=== PATIENT | female | born 1980 | race Caucasian/White ===

== ENCOUNTER → 2017-01-25 | Outpatient (CLI) | payer BC ==
[~2017-01-25] MED LIST: CPR500 PO
== END | disposition home or self-care (01) ==
LOC: C.LAB1850 07:10
PROVIDERS: ATTEND Nutritionist
DX: R53.83 Other fatigue (principal)

== ENCOUNTER 2017-07-16 15:26 | Emergency (ER) | payer BC ==
[~2017-07-16] VITALS: Ht 170.2 cm; Wt 55.9 kg
[2017-07-16 15:30] VITALS: TEMP 36.7; Ht 170.2 cm; Wt 55.9 kg
[2017-07-16] MEDS: MECLIZINE HCL 25 MG TAB PO STA ×2 (15:43→17:43)
[2017-07-16] MEDS ORDERED: SODIUM CHLORIDE 0.9% 1000ML 1,000 ML IV STA (15:43)
[2017-07-16 16:05] LABS: BASO % 0.6 %; BASO ABS # 0.07 K/uL (0-0.2); HEMATOCRIT 40.8 % (37-47); HEMOGLOBIN 14.3 g/dL (12.0-16.0); IG# 0.02 K/uL (0.00-0.02); LYMPH % 12.4 %; LYMPH ABS # 1.38 K/uL (1.2-3.4); MEAN CELL VOLUME 85.4 fL (80-100); MEAN CORPUSCULAR HEMOGLOBIN 29.9 pg (25-34); MEAN PLATELET VOLUME 9.9 fL (7.4-10.4); MONO % 7.8 %; MONO ABS # 0.87 K/uL (0.11-0.59); NEUT ABS # 7.82 K/uL (1.4-6.5); PLATELET COUNT 273 K/uL (130-400); RED CELL DISTRIBUTION WIDTH CV 12.6 % (11.5-14.5); RED CELL DISTRIBUTION WIDTH SD 39.7 fL (36.4-46.3); WHITE BLOOD COUNT 11.16 K/uL (4.8-10.8)
[2017-07-16 16:24] LABS: ALBUMIN 4.1 gm/dl (3.4-5.0); CALCIUM 9.2 mg/dl (8.5-10.1); CREATININE 0.7 mg/dl (0.60-1.20); POTASSIUM 3.5 mmol/L (3.5-5.1)
[2017-07-16 16:27] LABS: TOTAL PROTEIN 8.3 gm/dl (6.4-8.2)
--- NOTE | 2017-07-16 16:33 | DIAGNOSTIC IMAGING REPORT ---
HEAD CT NONCONTRAST CT DOSE: 614.27 mGy.cm HISTORY: dizzy TECHNIQUE: Multiaxial CT images of the head were performed without the use of intravenous contrast. Automated exposure control was utilized for this study. A dose lowering technique was utilized adhering to the principles of ALARA. Comparison: Brain MRI 08/22/2012. Findings: The paranasal sinuses and mastoid air cells are clear. The calvarium and skull base are intact. The ventricles and sulci are within normal limits. There is no mass, hematoma, midline shift, or acute infarct. Impression: No acute intracranial abnormality. Electronically signed by: Franki Banda M.D. 07/16/2017 4:31 PM Dictated Date/Time: 07/16/2017 4:28 PM
[2017-07-16] MEDS ORDERED: MECL1TAB42 PO (18:03)
[2017-07-16 18:15] VITALS: BP 118/68; PULSE 98; O2SAT 100
[2017-07-16] MEDS ORDERED: MECLIZINE HCL 25MG HOME PACK PO ONE (18:30)
--- NOTE | 2017-07-16 21:22 | EMERGENCY ROOM VISIT NOTE ---
History Report prepared by [place]ibr[place]ana: Margo Edwards Under the Supervision of: Dr. Charlie Stanley D.O. First contact with patient: 15:33 Chief Complaint: DIZZY Stated Complaint: EAR, VISION, OFF BALANCE, HEADACHES History of Present Illness The patient is a 36 year old female who presents to the Emergency Room with complaints of worsening dizziness for the past 1 month. She states she experiences a feeling of "fullness" in her left ear and constant "noise" in the ear, which causes her to feel "dizzy and off balance". She denies the room feeling like it's moving, but states things she looks at are "in motion". She has also experienced blurry vision. About 1 hour [employer], the patient developed a migraine headache, rating her pain as an 8/10 in severity. No exacerbating or remitting factors. She did have this in December for over a month as well. She has not followed up with neurology or anyone else for this. Pt denies fevers, chest pain, shortness of breath, nausea, vomiting, diarrhea, pain with urination, and melena. The patient admits to a history of intermittent tinnitus for the past several years. No weakness or numbness in arms or legs. Source of History: patient Onset: 1 month [employer] Position: head Symptom Intensity: 8/10 Timing: worsening Associated Symptoms: + headache, No fevers, No chest pain, No SOB, No nausea , No vomiting, No melena, No diarrhea, No urinary symptoms Review of Systems See HPI for pertinent positives & negatives. A total of 10 systems reviewed and were otherwise negative. Past Medical & Surgical Medical Problems: (1) Tinnitus Social History Smoking Status: Never Smoker Alcohol Use: occasionally Drug Use: none Marital Status: Housing Status: lives with family Occupation Status: employed Current/Historical Medications Scheduled Meclizine Hcl (Meclizine Hcl), 1 TAB PO TID Allergies Coded Allergies: No Known Allergies (Verified Allergy, Unknown, 12/29/04) Physical Exam Vital Signs Date Time Temp Pulse Resp B/P (MAP) Pulse Ox O2 Delivery O2 Flow Rate FiO2 07/16/17 18:15 98 16 118/68 100 Room Air 07/16/17 17:28 103 16 122/71 100 Room Air 07/16/17 15:30 36.7 110 17 122/83 100 Room Air Physical Exam GENERAL: Sitting up in bed, alert, well appearing, well nourished, no distress, non-toxic EYE EXAM: normal conjunctiva. PERRL and EOM's intact. OROPHARYNX: no exudate, no erythema, lips, buccal mucosa, and tongue normal and mucous membranes are moist EARS: TM's clear bilaterally. NECK: supple, no nuchal rigidity, no adenopathy, non-tender LUNGS: Clear to auscultation. Normal chest wall mechanics HEART: no murmurs, S1 normal and S2 normal ABDOMEN: abdomen soft, non-tender, normo-active bowel sounds, no masses, no rebound or guarding. BACK: Back is symmetrical on inspection and there is no deformity, no midline tenderness, no CVA tenderness. SKIN: no rashes and no bruising UPPER EXTREMITIES: upper extremities are grossly normal. LOWER EXTREMITIES: No pitting edema. NEURO EXAM: Normal sensorium, cranial nerves II-XII intact, normal speech, no weakness of arms, no weakness of legs. No drift. Finger to nose intact. Patient ambulates without difficulty. Medical Decision & Procedures ER Provider Diagnostic Interpretation: Radiology results as stated below per my review and the radiologist's interpretation: HEAD CT NONCONTRAST CT DOSE: 614.27 mGy.cm HISTORY: dizzy TECHNIQUE: Multiaxial CT images of the head were performed without the use of intravenous contrast. Automated exposure control was utilized for this study. A dose lowering technique was utilized adhering to the principles of ALARA. Comparison: Brain MRI 08/22/2012. Findings: The paranasal sinuses and mastoid air cells are clear. The calvarium and skull base are intact. The ventricles and sulci are within normal limits. There is no mass, hematoma, midline shift, or acute infarct. Impression: No acute intracranial abnormality. Electronically signed by: Franki Banda M.D. 07/16/2017 4:31 PM Laboratory Results 07/16/17 15:55 Red Blood Count 4.78, Mean Corpuscular Volume 85.4, Mean Corpuscular Hemoglobin 29.9, Mean Corpuscular Hemoglobin Concent 35.0, Mean Platelet Volume 9.9, Neutrophils (%) (Auto) 70.0, Lymphocytes (%) (Auto) 12.4, Monocytes (%) (Auto) 7.8, Eosinophils (%) (Auto) 9.0, Basophils (%) (Auto) 0.6, Neutrophils # (Auto) 7.82, Lymphocytes # (Auto) 1.38, Monocytes # (Auto) 0.87, Eosinophils # (Auto) 1.00, Basophils # (Auto) 0.07 07/16/17 15:55 Test 07/16/17 15:50 07/16/17 15:55 Urine Color YELLOW Urine Appearance TURBID (CLEAR) Urine pH 8.0 (4.5-7.5) Urine Specific Porter 1.013 (1.000-1.030) Urine Protein NEG (NEG) Urine Glucose (UA) NEG (NEG) Urine Ketones NEG (NEG) Urine Occult Blood NEG (NEG) Urine Nitrite NEG (NEG) Urine Bilirubin NEG (NEG) Urine Urobilinogen NEG (NEG) Urine Leukocyte Esterase NEG (NEG) Urine WBC (Auto) 1-5 /hpf (0-5) Urine RBC (Auto) 5-10 /hpf (0-4) Urine Hyaline Casts (Auto) 1-5 /lpf (0-5) Urine Epithelial Cells (Auto) >30 /lpf (0-5) Urine Bacteria (Auto) NEG (NEG) Urine Test NEG (NEG) White Blood Count 11.16 K/uL (4.8-10.8) Red Blood Count 4.78 M/uL (4.2-5.4) Hemoglobin 14.3 g/dL (12.0-16.0) Hematocrit 40.8 % (37-47) Mean Corpuscular Volume 85.4 fL (80-100) Mean Corpuscular Hemoglobin 29.9 pg (25-34) Mean Corpuscular Hemoglobin Concent 35.0 g/dl (32-36) Platelet Count 273 K/uL (130-400) Mean Platelet Volume 9.9 fL (7.4-10.4) Neutrophils (%) (Auto) 70.0 % Lymphocytes (%) (Auto) 12.4 % Monocytes (%) (Auto) 7.8 % Eosinophils (%) (Auto) 9.0 % Basophils (%) (Auto) 0.6 % Neutrophils # (Auto) 7.82 K/uL (1.4-6.5) Lymphocytes # (Auto) 1.38 K/uL (1.2-3.4) Monocytes # (Auto) 0.87 K/uL (0.11-0.59) Eosinophils # (Auto) 1.00 K/uL (0-0.5) Basophils # (Auto) 0.07 K/uL (0-0.2) RDW Standard Deviation 39.7 fL (36.4-46.3) RDW Coefficient of Variation 12.6 % (11.5-14.5) Immature Granulocyte % (Auto) 0.2 % Immature Granulocyte # (Auto) 0.02 K/uL (0.00-0.02) Anion Gap 3.0 mmol/L (3-11) Est Creatinine Clear Calc Drug Dose 98.0 ml/min Estimated GFR () 129.2 Estimated GFR (Non- 111.5 BUN/Creatinine Ratio 18.5 (10-20) Calcium Level 9.2 mg/dl (8.5-10.1) Total Bilirubin 0.6 mg/dl (0.2-1) Direct Bilirubin 0.2 mg/dl (0-0.2) Aspartate Amino Transf (AST/SGOT) 15 U/L (15-37) Alanine Aminotransferase (ALT/SGPT) 19 U/L (12-78) Alkaline Phosphatase 77 U/L (45-117) Total Protein 8.3 gm/dl (6.4-8.2) Albumin 4.1 gm/dl (3.4-5.0) Lipase 110 U/L (73-393) Laboratory results per my review. Medications Administered Medications (Trade) Dose Ordered Sig/Lalita Route Start Time Stop Time Status Last Admin Dose Admin Sodium Chloride 1,000 ml @ 999 mls/hr Q1H1M STAT IV 07/16/17 15:43 07/16/17 16:43 DC 07/16/17 15:57 999 MLS/HR Meclizine HCl (Antivert Tab) 25 mg NOW STAT PO 07/16/17 15:43 07/16/17 15:45 DC 07/16/17 17:43 25 MG Meclizine HCl (Antivert 25MG Home Pack) 1 homepack UD ONCE PO 07/16/17 18:30 07/16/17 18:31 DC 07/16/17 18:27 1 HOMEPACK ECG Per My Interpretation Indication: weakness Rate (beats per minute): 99 Rhythm: sinus rhythm Findings: Q waves (Septal), other (normal axis, late R-wave progression) ED Course ED COURSE: Vital signs were reviewed and showed normal vital signs. The patients medical record was reviewed The above diagnostic studies were performed and reviewed. ED treatments and interventions as stated above. 1535: The patient was evaluated in room B11. A complete history and physical examination was performed. 1543: NSS 1000 ml @ 999 mls/hr IV. 1545: Nursing informed me the patient declined the Antivert. 1800: Upon reevaluation, the patient is feeling well and is ready to go home. I discussed my findings with the patient and she understands and agrees with the treatment plan. Based on the patients age, coexisting illnesses, exam and lab findings the decision to treat as an outpatient was made. The patient remained stable while under my care. The patient appeared well at the time of discharge. Medical Decision Differential diagnosis includes etiologies such as benign positional vertigo, dehydration, hypovolemia, anemia, tumor, infection, hypoglycemia, electrolyte abnormalities, cardiac sources, intracerebral event, toxicologic, neurologic, as well as others were entertained. Patient is a 36-year-old female who presents the ER for ringing in her ears associated with dizziness. Ringing present in bilateral ears. This is been intermittent for the past 6 months. Normally last for close to a month at a time. It does come and go intermittently though. No exacerbating or remitting factors. She notes that when the ringing gets worse or dizziness does changes well. IV was established and CBC along with BMP, LFTs, bilirubin UA was negative. was negative. Patient was given fluids but she declined any other medications. Just prior to discharge she was agreeable to trying Antivert. CT head was negative. She was updated at bedside. Did recommend following up with neurology and ENT. Patient was agreeable with this. With her neuro exam intact she was discharged follow-up with them as an outpatient. Discussed with Pt concerning signs and symptoms to watch out for. Pt was instructed to follow up with their PCP and discussed with the patient their option to return to the ED at anytime for persistent or worsening symptoms. The appropriate anticipatory guidance and out-patient management, including indications for return to the emergency department, were explained at length to the patient and understood. Medication Reconcilliation Current Medication List: was personally reviewed by me Blood Pressure Screening Patient's blood pressure: Normal blood pressure Blood pressure disposition: Did not require urgent referral Impression Primary Impression: Tinnitus Additional Impression: Dizziness Scribe Attestation The scribe's documentation has been prepared under my direction and personally reviewed by me in its entirety. I confirm that the note above accurately reflects all work, treatment, procedures, and medical decision making performed by me. Departure Information Dispostion Home / Self-Care Prescriptions Meclizine Hcl (MECLIZINE HCL) 25 Mg Tab 1 TAB PO TID for 30 Days, #90 TAB Prov: Charlie Stanley, DO 07/16/17 Referrals No Doctor, Assigned (PCP) Patient Instructions ED Dizziness [facility], My [facility] Additional Instructions Please follow up with your primary care doctor with in the next 24 hours. Any worsening of your symptoms, please return to the ED immediately. This includes any fevers greater than 100.4, worsening pain, chest pain, shortness breath, persistent nausea, vomiting, unable to eat or drink, or any other concerning signs or symptoms from your standpoint. Please take Antivert as prescribed. Problem Qualifiers Primary Impression: Tinnitus Laterality: unspecified laterality Qualified Codes: H93.19 - Tinnitus, unspecified ear
== END 2017-07-16 18:15 | disposition home or self-care (01) ==
LOC: C.EDB 15:26
DX: H93.13 Tinnitus, bilateral (principal); R42 Dizziness and giddiness

== ENCOUNTER → 2017-08-18 | Outpatient (CLI) | payer BC ==
--- NOTE | 2017-08-18 17:42 | EEG Procedure Note ---
EEG Procedure Note Date of Service August 18, 2017. Start / End Times Start Time: 1:36 PM End Time: 1:58 PM Referring Physician ELVA Valdivia History This is a 37-year-old female with spells is vertigo and presyncope. EEG for further evaluation of possible seizure etiology. Description This is a 21 electrode EEG with a single channel dedicated to limited EKG. The electrodes were placed in accordance with the International 10-20 system. At the start of the recording the patient was in an awake state. Background was well organized and composed of symmetric mixed alpha and beta frequencies. There was a symmetric well-formed moderate amplitude 9-10 Hz posterior dominant rhythm that was reactive to eye opening and closure. Hyperventilation was not done. Intermittent photic stimulation at various frequencies produced no abnormalities. Drowsiness was indicated by loss of muscle artifact, slowing of the background rhythm, and vertex waves. There was no stage II sleep transients. Interpretation This is a normal awake and drowsy routine EEG. There was no electrographic seizures or epileptiform discharges. Clinical Correlation A normal EEG does not rule out epilepsy if there is a strong clinical suspicion.
== END | disposition home or self-care (01) ==
LOC: C.NEUR 13:15
PROVIDERS: ATTEND Nurse Practitioner Family
DX: H81.49 Vertigo of central origin, unspecified ear (principal); R55 Syncope and collapse

== ENCOUNTER → 2017-08-25 | Outpatient (CLI) | payer BC ==
--- NOTE | 2017-08-25 11:43 | DIAGNOSTIC IMAGING REPORT ---
CAROTID DOPPLER NECK ART CLINICAL HISTORY: 37 years-old Female presenting with CERV NECK PAIN,SYNCOPE,TINNITIS,CENTRAL VERTIGO. TECHNIQUE: Real-time grayscale and color and spectral Doppler ultrasound imaging of the bilateral carotid arteries was performed. NASCET criteria was used in evaluating this study. COMPARISON: None. FINDINGS: Right: Common carotid artery (CCA): Patent. Peak systolic velocity (PSV) 108 cm/s. Internal carotid artery (ICA): Patent. PSV 94 cm/s. End diastolic velocity (EDV) 39 cm/s. ICA/CCA (systolic) ratio: 0.9. External carotid artery (ECA): Patent. PSV 79 cm/s. Left: Common carotid artery (CCA): Patent. PSV 115 cm/s. Internal carotid artery (ICA): Patent. PSV 90 cm/s. EDV 32 cm/s. ICA/CCA (systolic) ratio: 0.8. External carotid artery (ECA): Patent. PSV 74 cm/s. Bilateral antegrade flow within the vertebral arteries. Blood pressure: Brachial: Right: 115/70 mmHg, Left: 110/70 mmHg. Reference ranges: Stenosis measurements are compared to reference velocity parameters by the Society of Radiologists in Ultrasound (SRU) consensus and Sonographic NASCET index (S-NASCET). SRU Primary parameters: ICA PSV <125 cm/s = normal or less than 50% stenosis; ICA PSV 125-230 cm/s = 50-69% stenosis; ICA PSV >230 cm/s = greater than or equal to 70% stenosis. SRU Additional parameters: ICA/CCA PSV ratio <2 = normal or less than 50% stenosis; ratio 2-4 = 50-69% stenosis; ratio >4 = greater than or equal to 70% stenosis. ICA EDV <40 cm/s = normal or less than 50% stenosis; ICA EDV 40-100 cm/s = 50-69% stenosis; ICA EDV >100 cm/s = greater than or equal to 70% stenosis. S-NASCET parameters: Deceleration spectral broadening + PSV <125 cm/s = less than 50% stenosis; pansystolic spectral broadening + PSV <125 cm/s = 16-49% stenosis; pansystolic spectral broadening + PSV >125 cm/s + EDV <110 cm/s or ICA/CCA PSV ratio 2-4 = 50-69% stenosis; pansystolic spectral broadening + PSV >270 cm/s OR EDV >110 cm/s OR ICA/CCA PSV ratio >4 = 70-79% stenosis; EDV >140 cm/s = 80-99% stenosis. IMPRESSION: 1. No hemodynamically significant stenosis seen within the carotid arteries. Electronically signed by: Luke Roberts M.D. 08/25/2017 11:41 AM Dictated Date/Time: 08/25/2017 11:40 AM
== END | disposition home or self-care (01) ==
LOC: C.ULTR 11:11
PROVIDERS: ATTEND Nurse Practitioner Family
DX: H81.49 Vertigo of central origin, unspecified ear (principal); R55 Syncope and collapse